=== PATIENT | female | born 1965 | race African-American/Black ===

== ENCOUNTER 2018-12-02 16:48 | Emergency (ER) | payer SELFPAY ==
[~2018-12-02] VITALS: Ht 162.6 cm; Wt 65.8 kg
[~2018-12-02 16:48] MED LIST: HYDR-2761 PO
[2018-12-02] MEDS ORDERED: ONDANSETRON PF 4 MG/2 ML VIAL. IV ONE (18:30)
[2018-12-02] MEDS ORDERED: FAMOTIDINE 20 MG/2 ML VIAL IVP ONE (18:30)
[2018-12-02] MEDS ORDERED: IV NORMAL SALINE 1000ML BAG 1,000 ML IV ONE (18:30)
--- NOTE | 2018-12-02 18:44 | PHYS DOC ---
Past Medical History Past Medical History: Asthma, Other Additional Past Medical Histor: deaf Past Surgical History: No Surgical History, Hysterectomy Additional Past Surgical Histo: UTERINE ABLATION Alcohol Use: Occasionally Drug Use: None Adult General Chief Complaint Chief Complaint: NAUSEA/VOMITING/DIARRHA HPI HPI Patient is a 53 year old deaf female who presents with nausea, vomiting, headache. History was limited but patient able to communicate by writing. Patient reports she had a headache earlier today and her cousin thought he was giving her advil but it turned out to be two lasix pills. Since then she has been nauseated and vomiting. Also developed upper crampy abdominal pain. Her headache is "all over dull ache." She has not been eating or drinking since it started and has not taken any other medications. She denies vision changes, chest pain, shortness of breath. The nurse attempted to call the cousin who was very rude and dismissive on the phone and ultimately hung up before any other information was obtained. Review of Systems Review of Systems Constitutional: Denies fever or chills [] Eyes: Denies change in visual acuity, redness, or eye pain [] HENT: Denies nasal congestion or sore throat, reports headache [] Respiratory: Denies cough or shortness of breath [] Cardiovascular: No chest pain, no palpitations GI:Reports upper abdominal pain, nausea, vomiting] Integument: Denies rash or skin lesions [] Complete systems were reviewed and found to be within normal limits, except as documented in this note. Current Medications Current Medications Current Medications Medications (Trade) Dose Ordered Sig/Jigar Start Time Stop Time Status Last Admin Dose Admin Ceftriaxone Sodium (Rocephin) 1 gm 1X ONCE 12/02/18 21:15 12/02/18 21:16 DC Dexamethasone Sodium Phosphate (Decadron) 10 mg 1X ONCE 12/02/18 18:45 12/02/18 18:46 DC 12/02/18 18:53 10 MG Famotidine (Pepcid Vial) 20 mg 1X ONCE 12/02/18 18:30 12/02/18 18:31 DC 12/02/18 18:47 20 MG Hyoscyamine (Anaspaz) 0.125 mg 1X ONCE 12/02/18 18:45 12/02/18 18:46 DC 12/02/18 18:53 0.125 MG Ondansetron HCl (Zofran) 4 mg 1X ONCE 12/02/18 18:30 12/02/18 18:31 DC 12/02/18 18:46 4 MG Sodium Chloride 1,000 ml @ 1,000 mls/hr 1X ONCE 12/02/18 18:30 12/02/18 19:29 DC 12/02/18 18:49 1,000 MLS/HR Allergies Allergies Allergies Coded Allergies Type Severity Reaction Last Updated Verified ibuprofen Allergy Unknown 11/06/15 Yes Physical Exam Physical Exam Constitutional: Well developed, well nourished, no acute distress, non-toxic appearance. [] HENT: Normocephalic, atraumatic, bilateral external ears normal, oropharynx moist, no oral exudates, nose normal. [] Eyes: PERRLA, EOMI, conjunctiva normal, no discharge. [] Neck: Normal range of motion, no tenderness, supple, no stridor. [] Cardiovascular:Heart rate regular rhythm, no murmur [] Lungs & Thorax: Bilateral breath sounds clear to auscultation [] Abdomen: Bowel sounds normal, soft, no tenderness, no masses, no pulsatile masses. [] Skin: Warm, dry, no erythema, no rash. [] Back: No tenderness, no CVA tenderness. [] Extremities: No tenderness, no cyanosis, no clubbing, ROM intact, no edema. [] Neurologic: Alert and oriented X 3, normal motor function, normal sensory function, no focal deficits noted. [] Psychologic: Affect normal, judgement normal, mood normal. [] Current Patient Data Vital Signs Vital Signs Date Time Temp Pulse Resp B/P (MAP) Pulse Ox O2 Delivery O2 Flow Rate FiO2 12/02/18 20:45 83 133/60 (84) 96 Room Air 12/02/18 18:24 97.8 20 97.8 Lab Values Laboratory Tests Test 12/02/18 18:45 12/02/18 20:30 12/02/18 20:35 White Blood Count 6.9 x10^3/uL (4.0-11.0) Red Blood Count 4.89 x10^6/uL (3.50-5.40) Hemoglobin 14.2 g/dL (12.0-15.5) Hematocrit 41.3 % (36.0-47.0) Mean Corpuscular Volume 84 fL (79-100) Mean Corpuscular Hemoglobin 29 pg (25-35) Mean Corpuscular Hemoglobin Concent 34 g/dL (31-37) Red Cell Distribution Width 14.4 % (11.5-14.5) Platelet Count 148 x10^3/uL (140-400) Neutrophils (%) (Auto) 80 % (31-73) H Lymphocytes (%) (Auto) 17 % (24-48) L Monocytes (%) (Auto) 2 % (0-9) Eosinophils (%) (Auto) 0 % (0-3) Basophils (%) (Auto) 0 % (0-3) Neutrophils # (Auto) 5.5 x10^3uL (1.8-7.7) Lymphocytes # (Auto) 1.2 x10^3/uL (1.0-4.8) Monocytes # (Auto) 0.2 x10^3/uL (0.0-1.1) Eosinophils # (Auto) 0.0 x10^3/uL (0.0-0.7) Basophils # (Auto) 0.0 x10^3/uL (0.0-0.2) Sodium Level 142 mmol/L (136-145) Potassium Level 3.8 mmol/L (3.5-5.1) Chloride Level 104 mmol/L (98-107) Carbon Dioxide Level 31 mmol/L (21-32) Anion Gap 7 (6-14) Blood Urea Nitrogen 14 mg/dL (7-20) Creatinine 0.7 mg/dL (0.6-1.0) Estimated GFR (Cockcroft-Gault) 105.5 BUN/Creatinine Ratio 20 (6-20) Glucose Level 99 mg/dL (70-99) Calcium Level 9.2 mg/dL (8.5-10.1) Magnesium Level 2.0 mg/dL (1.8-2.4) Total Bilirubin 0.4 mg/dL (0.2-1.0) Aspartate Amino Transferase (AST) 18 U/L (15-37) Alanine Aminotransferase (ALT) 15 U/L (14-59) Alkaline Phosphatase 115 U/L (46-116) Creatine Kinase 88 U/L (26-192) Creatine Kinase MB (Mass) 0.8 ng/mL (0.0-3.6) Creatine Kinase MB Relative Index 0.9 % (0-4) Troponin I Quantitative < 0.017 ng/mL (0.000-0.055) Total Protein 7.4 g/dL (6.4-8.2) Albumin 3.7 g/dL (3.4-5.0) Albumin/Globulin Ratio 1.0 (1.0-1.7) Lipase 85 U/L (73-393) Urine Collection Type Unknown Urine Color Yellow Urine Clarity Cloudy Urine pH 7.0 Urine Specific [place] 1.015 Urine Protein Negative mg/dL (NEG-TRACE) Urine Glucose (UA) Negative mg/dL (NEG) Urine Ketones (Stick) Negative mg/dL (NEG) Urine Blood Negative (NEG) Urine Nitrite Positive (NEG) Urine Bilirubin Negative (NEG) Urine Urobilinogen Dipstick 1.0 mg/dL (0.2 mg/dL) Urine Leukocyte Esterase Moderate (NEG) Urine RBC 0 /HPF (0-2) Urine WBC 5-10 /HPF (0-4) Urine Squamous Epithelial Cells Few /LPF Urine Bacteria Moderate /HPF (0-FEW) Lactic Acid Level 0.7 mmol/L (0.4-2.0) Laboratory Tests 12/02/18 18:45 Laboratory Tests 12/02/18 18:45 EKG EKG @1937 NSR with some premature atrial complexes at 75bpm, NO ST elevation Radiology/Procedures Radiology/Procedures [] Course & Med Decision Making Course & Med Decision Making Pertinent Labs and Imaging studies reviewed. (See chart for details) [] Dragon Disclaimer Dragon Disclaimer This electronic medical record was generated, in whole or in part, using a voice recognition dictation system. Departure Departure Impression: Primary Impression: Nausea & vomiting Additional Impressions: Urinary tract infection Epigastric abdominal pain Disposition: HOME, SELF-CARE Condition: STABLE Referrals: BROWN SIMONS MD (PCP) Patient Instructions: Abdominal Pain (Nonspecific), Nausea and Vomiting, Easy- to-Read, Urinary Tract Infection, [id number]-Ihif Scripts Hyoscyamine Sulfate (LEVSIN-SL) 0.125 Mg Tab.subl 1-2 TAB SL PRN Q4HRS PRN for PAIN, #20 TAB 1 Refill Prov: JOAQUIM MESSER DO 12/02/18 Cephalexin (KEFLEX) 500 Mg Capsule 500 MG PO TID for 7 Days, #21 CAP Prov: JOAQUIM MESSER DO 12/02/18 Famotidine (PEPCID) 20 Mg Tablet 20 MG PO BID, #14 TAB Prov: JOAQUIM MESSER DO 12/02/18 Ondansetron (ONDANSETRON ODT) 4 Mg Tab.rapdis 1 TAB PO PRN Q6-8HRS for VOMITING, #16 TAB Prov: JOAQUIM MESSER DO 12/02/18 Problem Qualifiers Primary Impression: Nausea & vomiting Vomiting type: unspecified Vomiting Intractability: unspecified Qualified Codes: R11.2 - Nausea with vomiting, unspecified Additional Impressions: Urinary tract infection Urinary tract infection type: acute cystitis Hematuria presence: without hematuria Qualified Codes: N30.00 - Acute cystitis without hematuria JOAQUIM MESSER DO Dec 02, 2018 18:44
[2018-12-02] MEDS ORDERED: HYOSCYAMINE 0.125 MG TAB.RAPDIS PO ONE (18:45)
[2018-12-02] MEDS ORDERED: DEXAMETHASONE SOD PHOS 20 MG/5 ML VIAL. IV ONE (18:45)
[2018-12-02 19:05] LABS: BASO % 0 % (0-3); EOS % 0 % (0-3); HEMATOCRIT 41.3 % (36.0-47.0); HEMOGLOBIN 14.2 g/dL (12.0-15.5); LYMPH # 1.2 x10^3/uL (1.0-4.8); LYMPH % 17 % (24-48); MEAN CORPUSCULAR HEMOGLOBIN 29 pg (25-35); MEAN CORPUSCULAR HGB CONC 34 g/dL (31-37); MEAN CORPUSCULAR VOLUME 84 fL (79-100); MONO # 0.2 x10^3/uL (0.0-1.1); MONO % 2 % (0-9); NEUT # 5.5 x10^3uL (1.8-7.7); NEUT % 80 % (31-73); PLATELET COUNT 148 x10^3/uL (140-400); RED BLOOD COUNT 4.89 x10^6/uL (3.50-5.40); RED CELL DISTRIBUTION WIDTH 14.4 % (11.5-14.5); WHITE BLOOD COUNT 6.9 x10^3/uL (4.0-11.0)
[2018-12-02 19:19] LABS: CALCIUM 9.2 mg/dL (8.5-10.1); CREATININE 0.7 mg/dL (0.6-1.0); GFR 105.5; POTASSIUM 3.8 mmol/L (3.5-5.1)
[2018-12-02 19:24] LABS: ALBUMIN 3.7 g/dL (3.4-5.0); TOTAL BILIRUBIN 0.4 mg/dL (0.2-1.0); TOTAL PROTEIN 7.4 g/dL (6.4-8.2)
[2018-12-02 20:59] LABS: BILIRUBIN,URINE NEGATIVE (NEG); CLARITY,URINE CLOUDY; COLOR,URINE YELLOW; NITRITE,URINE POSITIVE (NEG); PROTEIN,URINE NEGATIVE (NEG-TRACE)
[2018-12-02 21:06] LABS: BACTERIA,URINE MODERATE /HPF (0-FEW); RBC,URINE 0 /HPF (0-2); SQUAMOUS EPITHELIAL CELL,UR FEW /LPF
[2018-12-02] MEDS ORDERED: cefTRIAXone IV Push 1 GM VIAL. IVP ONE (21:15)
[2018-12-02] MEDS ORDERED: ONDA4TAB12 PO (21:24)
[2018-12-02] MEDS ORDERED: FAMO-63 PO (21:24)
[2018-12-02] MEDS ORDERED: CEPH-264 PO (21:24)
[2018-12-02] MEDS ORDERED: HYOS0.1265 SL (21:24)
[2018-12-02 21:45] VITALS: BP 92/52
--- NOTE | 2018-12-03 08:03 | EKG ---
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
== END 2018-12-02 21:57 | disposition home or self-care (01) ==
LOC: ER 16:48
DX: N30.00 Acute cystitis without hematuria (principal); R10.13 Epigastric pain; R11.2 Nausea with vomiting, unspecified; J45.909 Unspecified asthma, uncomplicated; Z90.710 Acquired absence of both cervix and uterus; Z88.6 Allergy status to analgesic agent
CPT/HCPCS: 36415; 80053; 81001; 82553; 83605; 83690; 83735; 84484; 85025; 87086; 87186; 93005; 96361; 96374; 96375; 99284; J0696; J1100; J2405; J3490; J7030

== ENCOUNTER 2021-04-14 18:23 | Emergency (ER) | payer SELFPAY ==
[~2021-04-14] VITALS: Ht 172.7 cm; Wt 63.0 kg
[~2021-04-14 18:23] MED LIST changes: +CEPH-264 PO; +FAMO-63 PO; +HYOS0.1265 SL; +ONDA4TAB12 PO
[2021-04-14 19:25] VITALS: BP 108/68
== END 2021-04-14 20:19 | disposition left against medical advice (07) ==
LOC: ER 18:23
DX: S30.864A Insect bite (nonvenomous) of vagina and vulva, initial encounter (principal); Z53.21 Procedure and treatment not carried out due to patient leaving prior to being seen by health care provider; W57.XXXA Bitten or stung by nonvenomous insect and other nonvenomous arthropods, initial encounter; Y93.89 Activity, other specified; Y92.89 Other specified places as the place of occurrence of the external cause; Y99.8 Other external cause status